=== PATIENT | male | born 1995 | race Caucasian/White ===

== ENCOUNTER 2017-08-26 19:32 | Emergency (ER) | payer BC ==
[~2017-08-26] VITALS: Ht 172.7 cm; Wt 61.1 kg
[2017-08-26 21:02] LABS: ALBUMIN 4.6 g/dL (3.2-4.8); CHLORIDE 104 mEq/L (99-109); SODIUM 140 mEq/L (136-147)
[2017-08-26 21:05] LABS: GLUCOSE 104 mg/dL (70-99); HEMATOCRIT 46.3 % (38.0-50.0); HEMOGLOBIN 16.8 G/DL (12.5-16.6); MCH 31.4 PG (29.0-34.0); MCHC 36.3 G/DL (30.0-36.0); MCV 86.5 FL (86-99); PLATELET COUNT 190 K/uL (156-360); RBC DIS.WIDTH-CV 11.6 % (11.8-14.6); RBC DIS.WIDTH-SD 36.9 % (39-53); RED BLOOD COUNT 5.35 M/uL (4.00-5.50); WHITE BLOOD COUNT 6.8 K/uL (4.1-10.2)
[2017-08-26 21:06] LABS: TOTAL BILIRUBIN 0.3 mg/dL (0.0-1.0)
[2017-08-26 21:07] LABS: SERUM ETHYL ALCOHOL < 10 mg/dL
[2017-08-26 21:08] LABS: ALKALINE PHOSPHATASE 94 IU/L (3-129); CREATININE 1.1 mg/dL (0.6-1.3); GFR ESTIMATE (CALCULATED) > 59 mL/min/ (58.99-99999)
[2017-08-26 21:09] LABS: UREA NITROGEN (BUN) 10 mg/dL (9-23)
[2017-08-26 21:10] LABS: AST (GOT) 18 IU/L (2-34)
[2017-08-26 21:11] LABS: ALT (GPT) 12 IU/L (3-49)
[2017-08-26] MEDS ORDERED: BENADRYL50 MG PO (22:42)
[2017-08-26 22:52] VITALS: BP 133/82
== END 2017-08-26 22:52 | disposition home or self-care (01) ==
LOC: EME 19:32
PROVIDERS: Emergency Medicine
DX: F33.3 Major depressive disorder, recurrent, severe with psychotic symptoms (principal); G47.00 Insomnia, unspecified; F17.200 Nicotine dependence, unspecified, uncomplicated
CPT/HCPCS: 80053; 85027; 90839; 99281; 99284; G0480; Q0177